=== PATIENT | female | born 1945 | race Native Hawaiian/Other Pacific Islander ===

== ENCOUNTER 2025-08-22 10:20 | Outpatient (CLI) | payer MEDICARE | END 2025-08-22 23:59 | disposition home or self-care (01) | LOC: WOU 10:20 | PROVIDERS: ATTEND Podiatrist Foot & Ankle Surgery | DX: M20.42 Other hammer toe(s) (acquired), left foot (principal); M20.12 Hallux valgus (acquired), left foot; M79.672 Pain in left foot; M79.671 Pain in right foot; Z79.82 Long term (current) use of aspirin ==